=== PATIENT | female | born 1955 | race Caucasian/White ===

== ENCOUNTER → 2019-02-27 | Outpatient (CLI) | payer BC ==
--- NOTE | 2019-02-27 12:50 | XR ---
EXAM TYPE: LUMBAR SPINE X RAY SERIES COMPARISON: NONE HISTORY: Low back pain TECHNIQUE: 4 views are submitted. FINDINGS: Alignment is anatomic. The pedicles are intact. The transverse processes are intact. Severe facet arthropathy L4-5 and L5-S1. Foraminal encroachment L5-S1. Diffuse osteopenia. Surgical clips in the r ight upper quadrant. There may be minimal anterolisthesis of L4 on L5. IMPRESSION: 1. Severe degenerative disc disease L5-S1 with multilevel facet arthropathy. Suspect foraminal encroa chment at L4-5 and L5-S1. Consider MRI follow-up..
== END ==
LOC: RADXRMAIN 12:23
PROVIDERS: ATTEND Family Medicine
DX: M51.37 Other intervertebral disc degeneration, lumbosacral region (principal); M46.97 Unspecified inflammatory spondylopathy, lumbosacral region
CPT/HCPCS: 72110

== ENCOUNTER → 2019-03-17 | Outpatient (CLI) | payer BC ==
--- NOTE | 2019-03-17 08:25 | MR ---
MR lumbar spine wo con Lumbar pain Multiplanar, multiecho imaging of the lumbar spine was obtained without contrast on a 3 Radha magnet. REFERENCE:None. FINDINGS: Paraspinal soft tissues are normal. Vertebral body height and alignment are maintained. Cord signal is maintained. The conus ends normall y at the level of the L1-2 disc. At T12-L1, no abnormalities demonstrated. At L1-2, there is mild hypertrophic change in the facets. At L2-3, there are mild hypertrophic changes in the facets. At L3-4, the intervertebral foramina are well maintained. There is no significant compressive discopa thy. There is mild degenerative change in the facets. At L4-5, the intervertebral foramina are well maintained. There is a diffuse disc displacement. There is capsulitis and hypertrophic changes in the facets. There is mild trefoiling of the thecal sac. At L5-S1, there is a broad-based disc protrusion causing bilateral intervertebral foraminal narrowing . There is hypertrophic change and capsulitis in the facets. IMPRESSION: 1. DEGENERATIVE DISC DISEASE MOST MARKED AT L4-5 AND L5-S1 WITH A BROAD-BASED DISC PROTRUSION PRESENT AT L5-S1 CAUSING BILATERAL INTERVERTEBRAL FORAMINAL NARROWING. 2. DIFFUSE FACET ARTHROPATHY.
== END | disposition home or self-care (01) ==
LOC: RADMRIMAIN 07:42
PROVIDERS: ATTEND Family Medicine
DX: M48.061 Spinal stenosis, lumbar region without neurogenic claudication (principal); M51.26 Other intervertebral disc displacement, lumbar region; M51.27 Other intervertebral disc displacement, lumbosacral region; M51.36 Other intervertebral disc degeneration, lumbar region; M51.37 Other intervertebral disc degeneration, lumbosacral region; M46.96 Unspecified inflammatory spondylopathy, lumbar region
CPT/HCPCS: 72148

== ENCOUNTER → 2020-06-02 | Outpatient (CLI) | payer MEDICARE ==
--- NOTE | 2020-06-03 11:15 | MM ---
Reason for exam: screening (asymptomatic). History: Patient is postmenopausal. Physical Findings: A clinical breast exam by your physician is recommended on an annual basis and results should be correlated with mammographic findings. MG 3D Screening Mammo W/Cad Bilateral CC and MLO view(s) were taken. No prior studies available for comparison. Finding: There is a 5 mm equal density (isodense), circumscribed mass located 3 cm from the nipple in the right breast. Asymmetric breast tissue left upper outer quadrant, 8cm from the nipple. ASSESSMENT: Incomplete: need additional imaging evaluation, BI-RAD 0 RECOMMENDATION: Special view mammogram of the left breast. Ultrasound of the right breast. [facility] will attempt to contact patient to return for supplemental views and ultrasound.
== END | disposition home or self-care (01) ==
LOC: RADMAMWWP 16:22
PROVIDERS: ATTEND Family Medicine
DX: Z12.31 Encounter for screening mammogram for malignant neoplasm of breast (principal)
CPT/HCPCS: 77063; 77067

== ENCOUNTER → 2020-06-09 | Outpatient (CLI) | payer MEDICARE ==
[~2020-06-09] MED LIST: REGADENOSON 0.4 MG/5 ML SYRINGE IV PRN
--- NOTE | 2020-06-09 13:24 | EST ---
EXERCISE STRESS DATE OF SERVICE: 06/09/2020 AGE: 64 SEX: Fe HT: 63" WT: 172 lbs PROTOCOL: Lexiscan Cardiolite STAGE: DURATION OF EXERCISE: HEART RATE REST: 75 BLOOD PRESSURE REST: 180/77 MAXIMUM HEART RATE ACHIEVED: 96 MAXIMUM BLOOD PRESSURE: 185/76 85% MPHR: 132 100% MPHR: 132 METS: 155 INDICATIONS: Chest pain. RESULTS: Baseline rhythm is sinus mechanism, rate of 75, normal axis, intervals, minor nonspecific ST-T wave changes. Baseline blood pressure 180/77 mmHg. Patient received injection of Lexiscan. Electrocardiograph monitoring revealed no evidence of diagnostic ischemic ST deviation. Cardiolite was injected per protocol. CONCLUSION: 1. Nondiagnostic electrocardiograph stress testing. 2. Nuclear images will be reported separately. MMODL / IJN: [id number] /
--- NOTE | 2020-06-09 14:39 | NM ---
EXAMINATION TYPE: NM stress lexiscan cardiolite DATE OF EXAM: 06/09/2020 COMPARISON: NONE HISTORY: I 25.110 TECHNIQUE: After the intravenous administration of 9.96 mCi Tc 99m Sestamibi - Cardiolite resting SP ECT images acquired 50 minutes post injection. The patient received 0.4mg Lexiscan, 25.6 mCi Tc 99m Sestamibi - Stress images obtained [address] injection FINDINGS: Review of stress and rest SPECT images, some mild decreased uptake present along the inferolateral le ft ventricle on stress as compared to rest images. There is some gut activity on rest images.. Gated analysis shows normal wall motion with an estimated left ventricular ejection fraction of 67 %. 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 This message alert has been sent to Mac Guido DO via the preferences provided by the clinician for the receipt of Radiology Critical Findings. Message ID [id number].
== END | disposition home or self-care (01) ==
LOC: RADNMMAIN 08:09
PROVIDERS: ATTEND Family Medicine
DX: I25.110 Atherosclerotic heart disease of native coronary artery with unstable angina pectoris (principal)
CPT/HCPCS: 93017; 78452; A9500; J2785

== ENCOUNTER → 2020-06-12 | Outpatient (CLI) | payer MEDICARE ==
[2020-06-12 15:21] LABS: HCT 48.6 % (34.0-46.0); HGB 15.2 gm/dL (11.4-16.0); MCH 29.9 pg (25.0-35.0); MCHC 31.4 g/dL (31.0-37.0); MCV 95.4 fL (80.0-100.0); Mean Platelet Volume 6.6; Platelet Count 400 k/uL (150-450); RBC 5.09 m/uL (3.80-5.40); RDW 13.3 % (11.5-15.5); WBC 8.1 k/uL (3.8-10.6)
[2020-06-12 15:31] LABS: African American GFR (CKD) >90 (>60 ml/min/1.73 sqM); Anion Gap 10 mmol/L; Blood Urea Nitrogen 15 mg/dL (7-17); Carbon Dioxide 28 mmol/L (22-30); Chloride 101 mmol/L (98-107); Non-African American GFR(CKD) >90 (>60 ml/min/1.73 sqM); Potassium 4.3 mmol/L (3.5-5.1); Sodium 139 mmol/L (137-145)
== END | disposition home or self-care (01) ==
LOC: LABPAT 14:37
PROVIDERS: ATTEND Internal Medicine Interventional Cardiology
DX: Z01.818 Encounter for other preprocedural examination (principal); R07.9 Chest pain, unspecified
CPT/HCPCS: 36415; 80051; 82565; 84520; 85027

== ENCOUNTER → 2020-06-18 | Day surgery (SDC) | payer MEDICARE ==
[2020-06-16 11:29] VITALS: BMI 30.1
[~2020-06-18] MED LIST changes: +ALPRAZolam 0.25 MG TAB PO PRN; +ALPRAZolam 0.5 MG TAB PO PRN; +ASPIRIN 325 MG TAB PO ONE; +ASPIRIN 81 MG PO SCH; +ATORVASTATIN 20 MG TAB PO SCH; +HEPARIN SODIUM 1,000 UN/ML (10ML VL) IV ONE; +HEPARIN SODIUM 1,000 UN/ML (10ML VL) ONE; +HEPARIN SODIUM,PORCINE 10,000 UNIT in SODIUM CHLORIDE 0.9% 1,000 ML IRRIGATION PRN; +HEPARIN SODIUM,PORCINE 2,500 UNIT in SODIUM CHLORIDE 0.9% 250 ML IRRIGATION PRN; +IOPAMIDOL-370 125ML BTL INJ ONE; +LEVOTHYROXINE 88 MCG TAB PO SCH; +LIDOCAINE 1% INJ 10MG/ML (20 ML MDV) ONE; +LIDOCAINE 1% INJ 10MG/ML (20 ML MDV) SQ ONE; +METOPROLOL TARTRATE 25 MG TAB PO SCH; +MIDAZOLAM 2 MG/2 ML VIAL IV ONE; +NITROGLYCERIN SL TABS 0.4 MG TAB SUBLINGUAL PRN; +PANTOPRAZOLE 40 MG TABLET PO SCH; -REGADENOSON 0.4 MG/5 ML SYRINGE IV PRN; +RX INFO: IV CONTRAST WAS GIVEN 1 EACH MISC MISCELLANE PRN; +SODIUM CHLORIDE 0.9% 1,000 ML IV SCH; +SODIUM CHLORIDE 0.9% 1,000 ML in EMPTY BAG 1 BAG IV ONE; +VERAPAMIL 2.5 MG/ML 2 ML AMP ONE; +VERAPAMIL SYRINGE (5 MG/10 ML) INTRAARTER ONE; +buPROPion XL 150 MG TAB.ER.24H PO SCH; +fentaNYL (PF) 50 MCG/ML 2 ML AMP IV ONE; +fentaNYL (PF) 50 MCG/ML 2 ML AMP ONE
[2020-06-18 06:56] VITALS: RESP 16; TEMP 97.8
--- NOTE | 2020-06-18 08:19 | CC ---
CARDIAC CATHETERIZATION REPORT Mrs. Mcgrath is a 64-year-old female with a known history of hyperlipidemia, chronic tobacco use and a family history of premature coronary artery disease who has been complaining of episode of chest discomfort. She underwent myocardial perfusion imaging that revealed evidence of inducible ischemia involving the inferior wall. In view of that, recommendation was made regarding cardiac catheterization. The procedure as well as the risks and the complications were discussed with the patient who is in full understanding and agreement. PROCEDURE: Patient was brought to the warehouse laborer in a fasting semi-sedated state after receiving fentanyl and Benadryl and achieving moderate conscious sedated state. Using Xylocaine anesthesia and Seldinger technique, a 6-Montserratian sheath was introduced in the right radial artery. Selective right and left coronary angiography was performed using 5- Montserratian 3.5 bend right and left Isidra catheter. Multiple views of the coronary artery including hemiaxial views were obtained. Following that, a 5-Montserratian tight pigtail catheter was introduced in the left ventricle and a 30-degree HERNANDEZ view for the left ventricle was obtained. Following that, catheter and sheath were removed. Hemostasis was obtained with deployment of a TR band. There was no immediate complication. The patient was returned to her room in stable condition. Of note, the patient received 4000 units of intravenous heparin as well as intra-arterial verapamil. FINDINGS: FLUOROSCOPY: There was mild calcification involving the ostium of the right coronary artery. LEFT MAIN: This is a large-sized vessel, bifurcating into left circumflex, left anterior descending artery. Left main coronary artery has no evidence of high-grade stenosis. LEFT ANTERIOR DESCENDING ARTERY: This is a large-sized vessel reaching to the apex with a wraparound apex segment giving rise to 2 diagonal branches, the first one is large in caliber. The left anterior descending artery as well as branches have no evidence of obstructive coronary artery disease. LEFT CIRCUMFLEX: This is a nondominant vessel giving rise to a large tortuous obtuse marginal branch. The left circumflex as well as branches have no evidence of obstructive coronary artery disease. RIGHT CORONARY ARTERY: This is a large dominant vessel bifurcating into PDA and posterolateral segment and branches. The right coronary artery as well as branches have no evidence of obstructive coronary artery disease. Mild calcification was noted in the proximal segment. LEFT VENTRICULOGRAM: Left ventriculogram was performed in 30-degree HERNANDEZ view and revealed normal left ventricular size and systolic function. Ejection fraction is estimated at 55%. There was no significant mitral regurgitation. HEMODYNAMICS: There was no gradient across the aortic valve. The left ventricular end-diastolic pressure was 20-24 mmHg. CONCLUSION: 1. Mild calcification of the ostium of the right coronary artery. 2. No evidence of high-grade stenosis. 3. Normal left ventricular size and systolic function. RECOMMENDATION: In view of finding anatomy, I recommend continue medical therapy with aggressive coronary risk modifications that have been initiated. Those findings and recommendation were discussed with the patient and her family and they are in full understanding and agreement. Duration of sedation is 14 minutes. MMODL / IJN: [id number] /
--- NOTE | 2020-06-18 08:22 | LTR ---
June 18, 2020 Re: Alexa Mcgrath Dear Dr. Guido: I had the opportunity to perform cardiac catheterization on Mrs. Mcgrath at [facility] on the 18 of June and a full copy of the procedure note will be forwarded to you. In brief, she was found to have no evidence of high-grade stenosis with mild calcification of the ostium of the right coronary artery. Based on those findings, I recommend to continue medical therapy with the aggressive coronary risk modifications being initiated including smoking cessation. Thank you again for allowing me the opportunity to participate in her care. Please feel free to call for any questions. Sincerely yours, MD JANIS PorterL / ALBERTINAN: [id number] /
[2020-06-18 10:07] VITALS: BP 134/58; PULSE 48
== END | disposition home or self-care (01) ==
LOC: CATHCVL 06:23
PROVIDERS: ATTEND Internal Medicine Interventional Cardiology
DX: I25.10 Atherosclerotic heart disease of native coronary artery without angina pectoris (principal); I77.1 Stricture of artery; R94.39 Abnormal result of other cardiovascular function study; R07.89 Other chest pain; R06.09 Other forms of dyspnea; E78.2 Mixed hyperlipidemia; E89.0 Postprocedural hypothyroidism; F17.210 Nicotine dependence, cigarettes, uncomplicated; E66.9 Obesity, unspecified; R01.1 Cardiac murmur, unspecified; Z68.30 Body mass index [BMI] 30.0-30.9, adult; Z79.82 Long term (current) use of aspirin; Z79.899 Other long term (current) drug therapy; Z79.890 Hormone replacement therapy; Z82.49 Family history of ischemic heart disease and other diseases of the circulatory system
CPT/HCPCS: 93458; C1769; C1894; J2250; J2001; J3010; J1644; Q9967

== ENCOUNTER → 2021-01-09 | Outpatient (CLI) | payer MEDICARE ==
--- NOTE | 2021-01-12 09:23 | USB ---
Reason for exam: follow-up at short interval from prior study. History: Patient is postmenopausal. US Breast Workup Limited RT Right limited breast ultrasound including focal area of concern, retroareolar and axilla demonstrates no cystic or solid lesion seen. These results were verbally communicated with the patient and result sheet given to the patient on 01/09/21. ASSESSMENT: Probably benign, BI-RAD 3 RECOMMENDATION: Return to routine screening mammogram schedule for both breasts. Back on schedule.
--- NOTE | 2021-01-12 09:23 | MM ---
Reason for exam: follow-up at short interval from prior study. Last mammogram was performed 7 months ago. History: Patient is postmenopausal. Physical Findings: Nurse did not find any significant physical abnormalities on exam. MG 3D Work Up W/Cad LT Spot compression CC, spot compression MLO, and LM view(s) were taken of the left breast. Prior study comparison: June 02, 2020, bilateral MG 3d screening mammo w/cad. There is no discrete abnormality. These results were verbally communicated with the patient and result sheet given to the patient on 01/09/21. ASSESSMENT: Negative, BI-RAD 1 RECOMMENDATION: Return to routine screening mammogram schedule for both breasts. Back on schedule for May 2020.
== END | disposition home or self-care (01) ==
LOC: RADMAMWWP 10:05
PROVIDERS: ATTEND Family Medicine
DX: R92.8 Other abnormal and inconclusive findings on diagnostic imaging of breast (principal)
CPT/HCPCS: 77065; 76642; G0279; 77061

== ENCOUNTER 2021-12-03 16:53 | Emergency (ER) | payer MEDICARE ==
--- NOTE | 2021-12-03 17:12 | ED ---
General Adult HPI - General Chief complaint: Recheck/Abnormal Lab/Rx Stated complaint: covid +, wants infusion Time Seen by Provider: 12/03/21 17:02 Source: patient Mode of arrival: ambulatory Limitations: no limitations - History of Present Illness Initial comments: Well-appearing 66-year-old female presents to the emergency room ambulatory with complaints of fever/chills and cough that started yesterday. She states that she took a Covid test at home that was positive. She did call her primary care doctor who recommended that she come into the emergency room for monoclonal antibodies. She has been vaccinated and boosted. She denies any difficulty in breathing or chest pain. No vomiting. She is a nonsmoker. Diagnosed with COPD in July, not on home oxygen. -: days(s) (2) Severity scale (1-10): 0 Associated Symptoms: cough, fever/chills - Related Data Home Medications Medication Instructions Recorded Confirmed Albuterol Inhaler [Ventolin Hfa 2 puff INHALATION QID PRN 06/16/20 06/18/20 Inhaler] Aspirin 81 mg PO DAILY 06/16/20 06/18/20 Esomeprazole Magnesium [NexIUM] 20 mg PO DAILY 06/16/20 06/18/20 Fish Oil/Dha/Epa [Fish Oil 1,200 1 each PO DAILY 06/16/20 06/18/20 mg Fish Oil] Levothyroxine Sodium [Synthroid] 88 mcg PO HS 06/16/20 06/18/20 Metoprolol Tartrate [Lopressor] 25 mg PO BID 06/16/20 06/18/20 Multivitamins, Thera [Multivitamin 1 tab PO DAILY 06/16/20 06/18/20 (formulary)] Simvastatin [Zocor] 40 mg PO HS 06/16/20 06/18/20 buPROPion XL [Wellbutrin Xl] 150 mg PO DAILY 06/16/20 06/18/20 ALPRAZolam [Xanax] 0.5 mg PO BID PRN 06/18/20 06/18/20 Allergies Allergy/AdvReac Type Severity Reaction Status Date / Time No Known Allergies Allergy Verified 12/03/21 16:59 Review of Systems ROS Statement: Those systems with pertinent positive or pertinent negative responses have been documented in the HPI. ROS Other: All systems not noted in ROS Statement are negative. Past Medical History Past Medical History: COPD Past Surgical History: Cholecystectomy Past Psychological History: No Psychological Hx Reported Smoking Status: Never smoker Past Alcohol Use History: Occasional Past Drug Use History: None Reported General Exam Limitations: no limitations General appearance: alert, in no apparent distress Head exam: Present: atraumatic, normocephalic Eye exam: Present: normal appearance. Absent: scleral icterus, conjunctival injection, periorbital swelling, periorbital tenderness ENT exam: Present: normal oropharynx, mucous membranes moist Neck exam: Present: normal inspection. Absent: tenderness, meningismus Respiratory exam: Present: normal lung sounds bilaterally. Absent: respiratory distress, wheezes, rales, rhonchi, stridor Cardiovascular Exam: Present: regular rate GI/Abdominal exam: Present: soft Extremities exam: Present: normal capillary refill. Absent: pedal edema Neurological exam: Present: alert, oriented X3, normal gait Psychiatric exam: Present: normal affect, normal mood Skin exam: Present: warm, dry, normal color. Absent: cyanosis, diaphoretic, petechiae, pallor Course Vital Signs 12/03/21 16:55 Temperature 98.4 F Pulse Rate 96 Respiratory 18 Rate Blood Pressure 165/66 O2 Sat by Pulse 94 L Oximetry Medical Decision Making - Medical Decision Making Patient presents with fever/chills and cough for two days. She states that she took a Covid test at home that was positive. PCP recommended that she come into the emergency room for monoclonal antibodies after recently diagnosed with COPD in July. She has been vaccinated and boosted. Denies any difficulty in breathing or chest pain. No nausea or vomiting. Patient tolerated the infusion without any difficulty. She was directed to follow up with primary care doctor next week. Self quarantine for 10 days from symptom onset. Return to the emergency room with any new or concerning symptoms. Disposition Clinical Impression: COVID-19 Disposition: HOME SELF-CARE Condition: Good Instructions (If sedation given, give patient instructions): COVID-19 (Coronavirus Disease 2019) (ED) Additional Instructions: Self quarantine for 10 days from symptom onset. If after 5 days you have no symptoms, you can go into public wearing just a mask for the remaining 5 days. Tylenol and Motrin as needed for any fevers or discomfort. Continue your albuterol as needed for any shortness of breath. Follow-up with your primary care doctor next week. Is patient prescribed a controlled substance at d/c from ED?: No Referrals: Mac Guido DO [Primary Care Provider] - 1-2 days Time of Disposition: 19:20
[2021-12-03] MEDS ORDERED: BEBTELOVIMAB (EUA) 175 MG/2 ML VIAL IV ONE (18:00)
[2021-12-03] MEDS ORDERED: ACETAMINOPHEN TAB 325 MG TAB PO STA (18:43)
[2021-12-03 19:28] VITALS: BP 160/78; PULSE 84; RESP 16; TEMP 101
== END 2021-12-03 19:28 | disposition home or self-care (01) ==
LOC: EC 16:53
DX: U07.1 COVID-19 (principal); J44.9 Chronic obstructive pulmonary disease, unspecified; Z79.82 Long term (current) use of aspirin; Z79.51 Long term (current) use of inhaled steroids
CPT/HCPCS: 99283; Q0222

== ENCOUNTER → 2023-09-05 | Outpatient (CLI) | payer MEDICARE ==
--- NOTE | 2023-09-08 10:18 | CTL ---
EXAMINATION TYPE: CT Low Dose Lung DATE OF EXAM: 09/05/2023 11:50 AM CLINICAL INDICATION:Female, 67 years old with history of Z12.2 LUNG CA SCR Z87.891 FORMER SMOKER; smo ker , history of tobacco use. COMPARISON: TECHNIQUE: Multiple axial non-contrast scans were obtained from approximately the lung apices through the upper abdomen. Coronal and sagittal reformatted images were obtained. Low dose technique was uti lized. CT DLP: 86.4 mGycm, Automated exposure control for dose reduction was used. CT Contrast: Contrast used: None Oral contrast used: None FINDINGS: ======== Lack of intravenous contrast and low dose technique limits the evaluation of the vascular and soft ti ssue structures. LUNGS: No evidence of pulmonary fibrosis. No evidence of focal consolidation, pneumothorax or pleural effusion. Nodules: RUL: None. RML: None. RLL: 13 mm nodule is identified in the right lower lobe on image 193, series 4.. Margins are spi culated. The nodule appears solid. DULCE: None. LLL: None. AIRWAY: Patent and unremarkable. HEART: Size within normal limits. MEDIASTINUM: No gross evidence of adenopathy. VASCULATURE: No aortic aneurysm. MUSCULOSKELETAL: No acute osseous abnormalities SOFT TISSUES/LYMPH NODES: Unremarkable. LOWER NECK: No significant findings. UPPER ABDOMEN: No significant acute findings. Cholecystectomy clips at gallbladder fossa IMPRESSION: 1. Solid, spiculated 13 mm nodule in the right lower lobe. CT LUNG RAD AND CT CHEST RECOMMENDATION: 4A suspicious S Modifier (other clinically significant findings): None. Recommend 3 month follow-up LDCT or PET/CT Recommend smoking cessation (if current smoker), or continuation of smoking cessation (if prior smoke r). Annual screening for lung cancer with low-dose computed tomography is recommended in adults ages 55 to 77 years who have a 30 pack-year smoking history and currently smoke or have quit within the pa st 15 years. Screening should be discontinued once a person has not smoked for 15 years or develops a health problem that substantially limits life expectancy or the ability or willingness to have curat lore lung surgery. Lung rads 2021 [email or web address]
== END | disposition home or self-care (01) ==
LOC: RADCTMAIN 11:18
PROVIDERS: ATTEND Internal Medicine
DX: Z12.2 Encounter for screening for malignant neoplasm of respiratory organs (principal); R91.1 Solitary pulmonary nodule; Z87.891 Personal history of nicotine dependence
CPT/HCPCS: 71271

== ENCOUNTER 2023-10-30 16:12 | Emergency (ER) | payer MEDICARE ==
--- NOTE | 2023-10-30 16:55 | ED ---
SOB HPI - General Chief Complaint: Shortness of Breath Stated Complaint: SOB Time Seen by Provider: 10/30/23 16:30 Source: patient, RN notes reviewed, old records reviewed Mode of arrival: wheelchair Limitations: no limitations - History of Present Illness Initial Comments: This is a 67-year-old female to the ER for evaluation patient m presents to the ER today for evaluation of severe shortness of breath increasing shortness of breath and dyspnea especially with exertion last few days now. May be some chest pain to her back increased cough and congestion pain from cough and congestion no fevers MD Complaint: shortness of breath -: days(s) Radiation: back Severity: moderate Severity scale (1-10): 7 Consistency: constant Improves With: nothing Worsens With: nothing Known History Of: COPD, asthma Associated Symptoms: chest pain, cough - Related Data Home Medications Medication Instructions Recorded Confirmed Levothyroxine Sodium [Synthroid] 88 mcg PO HS 06/16/20 10/30/23 Metoprolol Tartrate [Lopressor] 25 mg PO HS 06/16/20 10/30/23 Atorvastatin [Lipitor] 40 mg PO HS 10/30/23 10/30/23 DULoxetine HCL [Cymbalta] 30 mg PO DAILY 10/30/23 10/30/23 Fluticasone/Umeclidin/Vilanter 1 puff INHALATION RT-DAILY 10/30/23 10/30/23 [Trelegy Ellipta 100-62.5-25] Ipratropium-Albuterol Nebulize 3 ml INHALATION RT-QID 10/30/23 10/30/23 [Duoneb 0.5 mg-3 mg/3 ml Soln] Montelukast [Singulair] 10 mg PO HS 10/30/23 10/30/23 Omeprazole 20 mg PO BID 10/30/23 10/30/23 metFORMIN HCL [Glucophage] 500 mg PO BID 10/30/23 10/30/23 Previous Rx's Medication Instructions Recorded Azithromycin [Zithromax] 500 mg PO DAILY #5 tab 10/30/23 predniSONE 50 mg PO DAILY #5 tab 10/30/23 Allergies Allergy/AdvReac Type Severity Reaction Status Date / Time amoxicillin [From Augmentin] Allergy Nausea & Verified 10/30/23 19:44 Vomiting clavulanic acid Allergy Nausea & Verified 10/30/23 19:44 [From Augmentin] Vomiting Review of Systems ROS Statement: Those systems with pertinent positive or pertinent negative responses have been documented in the HPI. ROS Other: All systems not noted in ROS Statement are negative. Past Medical History Past Medical History: COPD, Diabetes Mellitus Past Surgical History: Cholecystectomy Past Psychological History: No Psychological Hx Reported Smoking Status: Never smoker Past Alcohol Use History: Occasional Past Drug Use History: None Reported General Exam Limitations: no limitations General appearance: alert, in no apparent distress, anxious Head exam: Present: atraumatic, normocephalic, normal inspection Eye exam: Present: normal appearance, PERRL, EOMI. Absent: scleral icterus, conjunctival injection, periorbital swelling ENT exam: Present: normal exam, mucous membranes moist Neck exam: Present: normal inspection. Absent: tenderness, meningismus, lymphadenopathy Respiratory exam: Present: respiratory distress, wheezes, accessory muscle use, decreased breath sounds, prolonged expiratory. Absent: rales, rhonchi, stridor Cardiovascular Exam: Present: regular rate, normal rhythm, normal heart sounds. Absent: systolic murmur, diastolic murmur, rubs, gallop, clicks GI/Abdominal exam: Present: soft, normal bowel sounds. Absent: distended, tenderness, guarding, rebound, rigid Extremities exam: Present: normal inspection, full ROM, normal capillary refill. Absent: tenderness, pedal edema, joint swelling, calf tenderness Back exam: Present: normal inspection Neurological exam: Present: alert, oriented X3, CN II-XII intact Psychiatric exam: Present: normal affect, normal mood Skin exam: Present: warm, dry, intact, normal color. Absent: rash Course Vital Signs 10/30/23 10/30/23 10/30/23 16:15 17:17 17:32 Temperature 97.7 F Pulse Rate 94 88 87 Respiratory 22 18 18 Rate Blood Pressure 126/79 O2 Sat by Pulse 94 L Oximetry 10/30/23 10/30/23 10/30/23 19:37 19:44 19:51 Temperature Pulse Rate 85 95 87 Respiratory 22 Rate Blood Pressure 136/89 O2 Sat by Pulse 99 Oximetry 10/30/23 10/30/23 21:24 21:57 Temperature 98.7 F Pulse Rate 100 98 Respiratory 16 18 Rate Blood Pressure 112/74 108/78 O2 Sat by Pulse 93 L 93 L Oximetry - Reevaluation(s) Reevaluation #1: 10/30/23 17:08 Medical record is reviewed Reevaluation #2: 10/30/23 17:08 Patient symptoms unchanged Reevaluation #3: 10/30/23 19:00 Patient informed of results and questions answered Reevaluation #4: Was pt. sent in by a medical professional or institution (, S[facility]I, HOME LENDING OFFICER, urgent care, hospital, or fci...) When possible be specific @ -no Did you speak to anyone other than the patient for history (EMS, parent, family, police, friend...)? What history was obtained from this source @ -no Did you review nursing and triage notes (agree or disagree)? Why? @ -agree Are old charts reviewed (outside hosp., previous admission, EMS record, old EKG, old radiological studies, urgent care reports/EKG's, fci records)? Report findings @ -yes Differential Diagnosis (chest pain, altered mental status, abdominal pain women, abdominal pain men, vaginal bleeding, weakness, fever, dyspnea, syncope, headache, dizziness, GI bleed, back pain, seizure, CVA, palpatations, mental health, musculoskeletal)? @ -prior EKG interpreted by me (3pts min.). @ -yes X-rays interpreted by me (1pt min.). @ -yes positive for pneumonia CT interpreted by me (1pt min.). @ -no U/S interpreted by me (1pt. min.). @ -no What testing was considered but not performed or refused? (CT, X-rays, U/S, labs)? Why? @ -none What meds were considered but not given or refused? Why? @ -none Did you discuss the management of the patient with other professionals (professionals i.e. , SINDI, HOME LENDING OFFICER, lab, RT, psych nurse, aids social worker, primary mill roller, teacher, founder and chief technical officer, casework manager)? Give summary @ -no Was smoking cessation discussed for >3mins.? @ -no Was critical care preformed (if so, how long)? @ -no Were there social determinants of health that impacted care today? How? (Homelessness, low income, unemployed, alcoholism, drug addiction, transportation, low edu. Level, literacy, decrease access to med. care, [facility], rehab)? @ -none Was there de-escalation of care discussed even if they declined (Discuss DNR or withdrawal of care, Hospice)? DNR status @ -no What co-morbidities impacted this encounter? (DM, HTN, Smoking, COPD, CAD, Cancer, CVA, ARF, Chemo, Hep., AIDS, mental health diagnosis, sleep apnea, morbid obesity)? @ -none Was patient admitted / discharged? Hospital course, mention meds given and route, prescriptions, significant lab abnormalities, going to OR and other pertinent info. @ - 67 female to the ER for evaluation patient presents today for evaluation and is found to have pneumonia patient was placed on antibiotics steroids and can be discharged home Discharged pneumonia Undiagnosed new problem with uncertain prognosis? @ -no Drug Therapy requiring intensive monitoring for toxicity (Heparin, Nitro, Insulin, Cardizem)? @ -no Were any procedures done? @ -no Diagnosis/symptom? @ - Acute, or Chronic, or Acute on Chronic? @ -Acute Uncomplicated (without systemic symptoms) or Complicated (systemic symptoms)? @ -Complicated Side effects of treatment? @ -no Exacerbation, Progression, or Severe Exacerbation? @ -exacerbation Poses a threat to life or bodily function? How? (Chest pain, [place], [place], pneumonia, PE, COPD, DKA, ARF, appy, cholecystitis, CVA, Diverticulitis, Homicidal, Suicidal, threat to staff... and all critical care pts) @ -yes seems of age Reevaluation #5: Differential Dyspnea: Coronary syndrome, arrhythmia, tamponade, asthma, COPD, pulmonary embolism, pneumonia, pneumothorax, pulmonary effusion, anaphylaxis, diabetic ketoacidosis, flailed chest, pulmonary contusion, diaphragmatic rupture, anemia, neuromuscul ar, this is not meant to be an all-inclusive list. Medical Decision Making - Medical Decision Making 67 female to the ER for evaluation patient presents today for evaluation and is found to have pneumonia patient was placed on antibiotics steroids and can be discharged home - Lab Data Result diagrams: 10/30/23 16:59 10/30/23 16:59 Lab Results 10/30/23 10/30/23 10/30/23 Range/Units 16:59 16:59 16:59 WBC 16.8 H (3.8-10.6) k/uL RBC 4.75 (3.80-5.40) m/uL Hgb 14.0 (11.4-16.0) gm/dL Hct 42.6 (34.0-46.0) % MCV 89.8 (80.0-100.0) fL MCH 29.5 (25.0-35.0) pg MCHC 32.8 (31.0-37.0) g/dL RDW 14.1 (11.5-15.5) % Plt Count 333 (150-450) k/uL MPV 7.5 Neutrophils % 89 % Lymphocytes % 3 % Monocytes % 7 % Eosinophils % 1 % Basophils % 0 % Neutrophils # 15.0 H (1.3-7.7) k/uL Lymphocytes # 0.5 L (1.0-4.8) k/uL Monocytes # 1.1 H (0-1.0) k/uL Eosinophils # 0.1 (0-0.7) k/uL Basophils # 0.0 (0-0.2) k/uL PT 10.2 (10.0-12.5) sec INR 0.9 (<1.2) APTT 24.1 (22.0-30.0) sec Sodium 136 L (137-145) mmol/L Potassium 3.4 L (3.5-5.1) mmol/L Chloride 103 (98-107) mmol/L Carbon Dioxide 25 (22-30) mmol/L Anion Gap 8 mmol/L BUN 7 (7-17) mg/dL Creatinine 0.53 (0.52-1.04) mg/dL Est GFR (CKD-EPI)AfAm >90 (>60 ml/min/1.73 sqM) Est GFR (CKD-EPI)NonAf >90 (>60 ml/min/1.73 sqM) Glucose 132 H (74-99) mg/dL Plasma Lactic Acid Esteban (0.7-2.0) mmol/L Calcium 9.3 (8.4-10.2) mg/dL Magnesium 1.4 L (1.6-2.3) mg/dL Total Bilirubin 0.9 (0.2-1.3) mg/dL AST 20 (14-36) U/L ALT 16 (4-34) U/L Alkaline Phosphatase 109 (38-126) U/L Troponin I (0.000-0.034) ng/mL NT-Pro-B Natriuret Pep 160 pg/mL Total Protein 6.7 (6.3-8.2) g/dL Albumin 4.2 (3.5-5.0) g/dL Influenza Type A (PCR) (Not Detectd) Influenza Type B (PCR) (Not Detectd) RSV (PCR) (Not Detectd) SARS-CoV-2 (PCR) (Not Detectd) 10/30/23 10/30/23 10/30/23 Range/Units 16:59 16:59 20:51 WBC (3.8-10.6) k/uL RBC (3.80-5.40) m/uL Hgb (11.4-16.0) gm/dL Hct (34.0-46.0) % MCV (80.0-100.0) fL MCH (25.0-35.0) pg MCHC (31.0-37.0) g/dL RDW (11.5-15.5) % Plt Count (150-450) k/uL MPV Neutrophils % % Lymphocytes % % Monocytes % % Eosinophils % % Basophils % % Neutrophils # (1.3-7.7) k/uL Lymphocytes # (1.0-4.8) k/uL Monocytes # (0-1.0) k/uL Eosinophils # (0-0.7) k/uL Basophils # (0-0.2) k/uL PT (10.0-12.5) sec INR (<1.2) APTT (22.0-30.0) sec Sodium (137-145) mmol/L Potassium (3.5-5.1) mmol/L Chloride (98-107) mmol/L Carbon Dioxide (22-30) mmol/L Anion Gap mmol/L BUN (7-17) mg/dL Creatinine (0.52-1.04) mg/dL Est GFR (CKD-EPI)AfAm (>60 ml/min/1.73 sqM) Est GFR (CKD-EPI)NonAf (>60 ml/min/1.73 sqM) Glucose (74-99) mg/dL Plasma Lactic Acid Esteban 1.3 (0.7-2.0) mmol/L Calcium (8.4-10.2) mg/dL Magnesium (1.6-2.3) mg/dL Total Bilirubin (0.2-1.3) mg/dL AST (14-36) U/L ALT (4-34) U/L Alkaline Phosphatase (38-126) U/L Troponin I <0.012 (0.000-0.034) ng/mL NT-Pro-B Natriuret Pep pg/mL Total Protein (6.3-8.2) g/dL Albumin (3.5-5.0) g/dL Influenza Type A (PCR) Not Detected (Not Detectd) Influenza Type B (PCR) Not Detected (Not Detectd) RSV (PCR) Not Detected (Not Detectd) SARS-CoV-2 (PCR) Not Detected (Not Detectd) - EKG Data -: EKG Interpreted by Me (EKG is sinus 91 CT 133 QRS 97 QTc 409) - Radiology Data Radiology results: report reviewed (Chest x-ray is negative for acute disease), image reviewed Disposition Clinical Impression: Acute exacerbation of chronic obstructive pulmonary disease, Walking pneumonia Disposition: HOME SELF-CARE Condition: Good Instructions (If sedation given, give patient instructions): Chronic Bronchitis (ED), Community Acquired Pneumonia (ED) Prescriptions: predniSONE 50 mg PO DAILY #5 tab Azithromycin [Zithromax] 500 mg PO DAILY #5 tab Is patient prescribed a controlled substance at d/c from ED?: No Referrals: Mac Guido DO [Primary Care Provider] - 1-2 days Time of Disposition: 19:00
[2023-10-30] MEDS: IPRATROPIUM-ALBUTEROL 3 ML NEB INHALATION STA ×2 (17:17→19:35)
[2023-10-30] MEDS: SODIUM CHLORIDE 0.9% 500 ML 500 ML IV STA (17:17)
--- NOTE | 2023-10-30 17:17 | XR ---
EXAMINATION TYPE: XR chest 1V portable DATE OF EXAM: 10/30/2023 5:11 PM CLINICAL INDICATION:Female, 67 years old with history of sob; [facility] COMPARISON: 01/04/2022 x-ray. TECHNIQUE: XR chest 1V portable Frontal view of the chest. FINDINGS: Lungs/Pleura: Subsegmental atelectasis is present in the lung bases. No pleural effusion or pneumotho rax. Pulmonary vascularity: Unremarkable. Heart/mediastinum: Cardiomediastinal silhouette is unremarkable. Atherosclerotic calcifications are seen in the aorta. Musculoskeletal: No acute osseous pathology. IMPRESSION: No acute cardiopulmonary disease/process.
[2023-10-30 17:18] LABS: INR 0.9 (<1.2); Partial Thromboplastin Time 24.1 sec (22.0-30.0); Prothrombin Time 10.2 sec (10.0-12.5)
[2023-10-30 17:19] LABS: ALT 16 U/L (4-34); AST 20 U/L (14-36); African American GFR (CKD) >90 (>60 ml/min/1.73 sqM); Albumin 4.2 g/dL (3.5-5.0); Alkaline Phosphatase 109 U/L (38-126); Anion Gap 8 mmol/L; Blood Urea Nitrogen 7 mg/dL (7-17); Calcium 9.3 mg/dL (8.4-10.2); Carbon Dioxide 25 mmol/L (22-30); Chloride 103 mmol/L (98-107); Glucose 132 mg/dL (74-99); Magnesium 1.4 mg/dL (1.6-2.3); Non-African American GFR(CKD) >90 (>60 ml/min/1.73 sqM); Potassium 3.4 mmol/L (3.5-5.1); Sodium 136 mmol/L (137-145); Total Bilirubin 0.9 mg/dL (0.2-1.3); Total Protein 6.7 g/dL (6.3-8.2)
[2023-10-30 17:20] LABS: Basophils % (A) 0 %; Eosinophils # (A) 0.1 k/uL (0-0.7); Eosinophils % (A) 1 %; HCT 42.6 % (34.0-46.0); Lymphocytes # (A) 0.5 k/uL (1.0-4.8); Lymphocytes % (A) 3 %; MCH 29.5 pg (25.0-35.0); MCHC 32.8 g/dL (31.0-37.0); MCV 89.8 fL (80.0-100.0); Mean Platelet Volume 7.5; Monocytes # (A) 1.1 k/uL (0-1.0); Monocytes % (A) 7 %; Neutrophils % (A) 89 %; Platelet Count 333 k/uL (150-450); RBC 4.75 m/uL (3.80-5.40); RDW 14.1 % (11.5-15.5); WBC 16.8 k/uL (3.8-10.6)
[2023-10-30 17:27] LABS: NT-Pro-B-Type Natriuretic Pept 160 pg/mL
[2023-10-30] MEDS: SODIUM CHLORIDE 0.9% 1,000 ML IV STA (19:14)
[2023-10-30] MEDS: methylPREDNISolone SOD SUCCI 125 MG/2 ML VIAL IV STA (19:25)
[2023-10-30] MEDS: cefTRIAXone IN SWFI 1,000 MG/10 ML SYRINGE IVP STA (19:28)
[2023-10-30] MEDS: MAGNESIUM SULFATE-D5W PMX 1 GM in DEXTROSE/WATER 1 100ML.BAG IVPB ONE (19:30)
[2023-10-30] MEDS: MAGNESIUM SULFATE-D5W PMX 1 GM in DEXTROSE/WATER 1 100ML.BAG IVPB SCH (19:36)
[2023-10-30] MEDS: MAGNESIUM OXIDE 400 MG TAB PO STA ×2 (19:37→20:06)
[2023-10-30] MEDS: ONDANSETRON 4 MG TAB PO STA (19:37)
[2023-10-30] MEDS: AZITHROMYCIN 500 MG in SODIUM CHLORIDE 0.9% 250 ML IVPB STA (19:40)
[2023-10-30] MEDS: POTASSIUM BICARBONATE/CIT AC 20 MEQ TABLET.EFF PO ONE (20:29)
[2023-10-30 21:59] VITALS: BP 108/78; PULSE 98; RESP 18; TEMP 98.7
== END 2023-10-30 21:51 | disposition home or self-care (01) ==
LOC: EC 16:12
DX: J18.9 Pneumonia, unspecified organism (principal); J44.1 Chronic obstructive pulmonary disease with (acute) exacerbation; Z88.0 Allergy status to penicillin; Z88.1 Allergy status to other antibiotic agents
CPT/HCPCS: 99285 ×2; 96365 ×2; 96368 ×2; 96375 ×3; 36415; 94640; 93005; 83880; 80053; 83605; 83735; 84484; 85025; 85610; 85730; 87636; 71045; J0456; J0696; J3475; J2919